=== PATIENT | female | born 2000 | race Caucasian/White ===

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

== ENCOUNTER 2019-03-24 15:48 | Observation (INO) | payer MEDICAID ==
[~2019-03-24 15:48] MED LIST changes: +METR500T PO
[2019-03-24] MEDS ORDERED: IV RINGERS,LACTATED 500ML 500 ML IV PRN (16:00)
[2019-03-24 16:11] LABS: BILIRUBIN,URINE NEGATIVE (NEG); CLARITY,URINE CLEAR; COLOR,URINE YELLOW; NITRITE,URINE NEGATIVE (NEG); PROTEIN,URINE NEGATIVE (NEG-TRACE)
[2019-03-24 16:16] LABS: BACTERIA,URINE 0 /HPF (0-FEW); RBC,URINE 0 /HPF (0-2); WBC,URINE RARE /HPF (0-4)
[2019-03-24 16:17] LABS: SQUAMOUS EPITHELIAL CELL,UR OCC /LPF
== END 2019-03-24 17:38 | disposition home or self-care (01) ==
LOC: 3 SO LND 15:48
PROVIDERS: ADMIT Specialist; ATTEND Specialist
DX: O62.9 Abnormality of forces of labor, unspecified (principal); Z3A.30 30 weeks gestation of pregnancy
CPT/HCPCS: 81001; 87086; G0378; G0379

== ENCOUNTER 2019-05-20 19:45 | Inpatient (IN) | payer MEDICAID ==
[~2019-05-20] VITALS: Ht 156.2 cm; Wt 110.7 kg
[2019-05-20] MEDS ORDERED: LIDOCAINE 1% PF 30 ML VIAL. INJ PRN (20:15)
[2019-05-20] MEDS ORDERED: 0.9 % SODIUM CHLORIDE 10 ML DISP.SYRIN. IV PRN (20:15)
[2019-05-20] MEDS ORDERED: TERBUTALINE 1 MG/ML VIAL. SQ PRN (20:15)
[2019-05-20] MEDS ORDERED: BUTORPHANOL 2 MG/ML VIAL. IV PRN ×2 (20:15)
[2019-05-20] MEDS ORDERED: OXYTOCIN 30 UNIT/500 ML PREMIX 500 ML IV PRN (20:15)
[2019-05-20] MEDS ORDERED: MAG HYDROX/ALUMINUM HYD/SIMETH 30 ML ORAL.SUSP PO PRN (20:15)
[2019-05-20] MEDS ORDERED: NALBUPHINE 10 MG/ML AMPUL. IV PRN (20:15)
[2019-05-20] MEDS ORDERED: ONDANSETRON PF 4 MG/2 ML VIAL. IV PRN (20:15)
[2019-05-20] MEDS ORDERED: ACETAMINOPHEN 325 MG TABLET. PO PRN (20:15)
[2019-05-20] MEDS ORDERED: CITRIC ACID/SODIUM CITRATE 30 ML SOLUTION. PO PRN (20:15)
[2019-05-20] MEDS ORDERED: fentaNYL PF VIAL 100 MCG/2 ML VIAL IV PRN (20:15)
[2019-05-20 20:24] VITALS: BP 119/61
[2019-05-20 20:43] LABS: BILIRUBIN,URINE NEGATIVE (NEG); CLARITY,URINE CLEAR; COLOR,URINE YELLOW; NITRITE,URINE NEGATIVE (NEG); PROTEIN,URINE NEGATIVE (NEG-TRACE)
[2019-05-20 20:47] LABS: BACTERIA,URINE MANY /HPF (0-FEW); RBC,URINE OCC /HPF (0-2); SQUAMOUS EPITHELIAL CELL,UR MANY /LPF; WBC,URINE 20-40 /HPF (0-4)
[2019-05-20 21:30] LABS: BASO # 0.1 x10^3/uL (0.0-0.2); BASO % 1 % (0-3); EOS # 0.1 x10^3/uL (0.0-0.7); EOS % 1 % (0-3); HEMOGLOBIN 12.9 g/dL (12.0-15.5); LYMPH # 2.2 x10^3/uL (1.0-4.8); LYMPH % 16 % (24-48); MEAN CORPUSCULAR HEMOGLOBIN 28 pg (25-35); MEAN CORPUSCULAR HGB CONC 34 g/dL (31-37); MEAN CORPUSCULAR VOLUME 84 fL (79-100); MONO # 0.7 x10^3/uL (0.0-1.1); MONO % 5 % (0-9); NEUT # 10.5 x10^3/uL (1.8-7.7); NEUT % 77 % (31-73); PLATELET COUNT 284 x10^3/uL (140-400); RED BLOOD COUNT 4.53 x10^6/uL (3.50-5.40); RED CELL DISTRIBUTION WIDTH 14.5 % (11.5-14.5); WHITE BLOOD COUNT 13.6 x10^3/uL (4.0-11.0)
[2019-05-20] MEDS ORDERED: DINOPROSTONE 10 MG SUPP.VAG VG ONE (21:30)
[2019-05-20] MEDS: IV RINGERS,LACTATED 1000ML 1,000 ML IV PRN (21:36)
[2019-05-21] MEDS: IV RINGERS,LACTATED 1000ML 1,000 ML IV PRN (00:58)
[2019-05-21] MEDS ORDERED: BUPIVACAINE MPF 0.25% 30 ML VIAL. ONE (02:57)
[2019-05-21] MEDS ORDERED: L&D EPIDURAL SYRINGE 0 ML ONE (02:57)
[2019-05-21] MEDS ORDERED: L&D EPIDURAL 50 ML SYRINGE. ONE (03:00)
--- NOTE | 2019-05-21 03:15 | PDOC1 ---
OB - History Hx of Present Care: Good Care Ultrasounds: Normal mid trimester US Obstetrical Complications: None Medical Complications: None Past Family/Social History * Past Medical, Surgical, Family and Obstetric Histories reviewed from chart. Rubella: Immune RPR/VDRL: Negative GBS Status: Negative HBsAG: Negative OB - Chief Complaint & HPI Date of Admission: Date of Admission: May 20, 2019 at 19:45 Chief Complaint/History : 2 Para: 1 EGA: 39 Reason for admission: induction of labor Indication for induction: maternal discomfort Admission Nurse Assessment Rev: Yes OB - Admission Exam Physical Exam Vitals: VS - Last 72 Hours, by Label Date Time Temp Pulse Resp B/P (MAP) Pulse Ox O2 Delivery O2 Flow Rate FiO2 05/21/19 02:20 22 Room Air 05/20/19 20:24 98.1 112 20 119/61 (80) Room Air 98.1 HEENT: Normal Heart: Regular Rate Lungs: Clear Abdomen: Gravid, Non tender, Soft Extremities: Edema Reflexes: Normal Cervical Dilatation: 1cm Effacement: 50% Station: -3 Membranes: Intact Heart Rate: Normal Accelerations: Accelerations Present Decelerations: No decelerations Contractions on Admission: >10 Minutes Apart Intensity: Mild Text A: 39 wks IUP IOL maternal discomforts of P: Admit IOL cervidil. TARUN MARIN Jr, MD May 21, 2019 03:15
[2019-05-21] MEDS ORDERED: OXYTOCIN 10 UNIT/ML VIAL. ONE (03:56)
[2019-05-21] MEDS ORDERED: OXYTOCIN PREMIX 30 UNIT/500 ML NS BAG. IV ONE (04:00)
--- NOTE | 2019-05-21 04:02 | PDOC ---
VAGINAL DELIVERY DATE DATE: 05/21/19 TIME: 04:01 : 2 Para: 2 EGA: 39 VAGINAL DELIVERY: VTX VACCUM ASSISTED: No PLACENTA: Spontaneous 8/9 SEX: Male WEIGHT Weight [3995 gm ] Nuchal Cord: Yes, Times 1 Amniotic Fluid: Clear PAIN: Epidural EPISIOTOMY: No EXTENSION: Yes (1st degree midline laceration) REPAIRED WITH none; hemostatic EBL 300 ml COMPLICATIONS none CONDITION pt. stable Signs of Intrauterine Infectio: None Shoulder Dystocia: No TARUN MARIN Jr, MD May 21, 2019 04:02
[2019-05-21] MEDS ORDERED: oxyCODONE/APAP 5/325 1 TAB TABLET PO PRN (04:15)
[2019-05-21] MEDS ORDERED: OXYTOCIN 30 UNIT/500 ML PREMIX 500 ML IV PRN ×2 (04:15→09:30)
[2019-05-21] MEDS ORDERED: ACETAMINOPHEN 325 MG TABLET. PO PRN (04:15)
[2019-05-21] MEDS ORDERED: MAGNESIUM HYDROXIDE 2,400 MG/30 ML ORAL.SUSP. PO PRN (04:15)
[2019-05-21] MEDS ORDERED: MMR per PROTOCOL. MC PRN (04:15)
[2019-05-21] MEDS ORDERED: SIMETHICONE 80 MG TAB.CHEW PO PRN (04:15)
[2019-05-21] MEDS ORDERED: diphenhydrAMINE HCL 25 MG CAPSULE PO PRN (04:15)
[2019-05-21] MEDS ORDERED: 0.9 % SODIUM CHLORIDE 10 ML DISP.SYRIN. IV PRN (04:15)
[2019-05-21] MEDS ORDERED: ZOLPIDEM 5 MG TABLET. PO PRN (04:15)
[2019-05-21] MEDS ORDERED: HYDROCORTISONE 1% TOPICAL OINTMENT 30GM TUBE. TP PRN (04:15)
[2019-05-21] MEDS ORDERED: PHENYLEPH/MINERAL OIL/PETROLAT RECTAL OINTMENT TUBE. RC PRN (04:15)
[2019-05-21] MEDS ORDERED: OXYTOCIN 10 UNIT/ML VIAL. IM ONE (04:15)
[2019-05-21] MEDS ORDERED: MAG HYDROX/ALUMINUM HYD/SIMETH 30 ML ORAL.SUSP PO PRN (04:15)
[2019-05-21] MEDS ORDERED: BENZOCAINE 20% TOPICAL AEROSOL SPRAY 57GM CAN. TP PRN (04:15)
[2019-05-21] MEDS ORDERED: NALBUPHINE 10 MG/ML AMPUL. IV PRN (05:00)
[2019-05-21] MEDS ORDERED: NALOXONE 0.4 MG/ML VIAL. IV PRN (05:00)
[2019-05-21] MEDS ORDERED: ePHEDrine PF IN SALINE 50 MG/10 ML SYRINGE. IV PRN (05:00)
[2019-05-21] MEDS ORDERED: ROPIVacaine 0.2% IN 0.9%NACL PF 40 MG/20 ML DISP.SYRIN. EPID PRN (05:00)
[2019-05-21] MEDS ORDERED: BUPIVACAINE MPF 0.25% 30 ML VIAL. EPID PRN (05:00)
[2019-05-21] MEDS ORDERED: PHENYLEPHRINE in 0.9% NACL PF 1 MG/10 ML SYRINGE. IV PRN (05:00)
[2019-05-21] MEDS ORDERED: fentaNYL PF VIAL 100 MCG/2 ML VIAL IV PRN (05:00)
[2019-05-21] MEDS ORDERED: L&D EPIDURAL SYRINGE 50 ML EPID PRN (05:00)
[2019-05-21] MEDS ORDERED: diphenhydrAMINE 50 MG/ML VIAL IV PRN (05:00)
[2019-05-21] MEDS ORDERED: IV RINGERS,LACTATED 500ML 500 ML IV PRN (05:00)
[2019-05-21] MEDS ORDERED: ONDANSETRON PF 4 MG/2 ML VIAL. IV PRN (05:00)
[2019-05-21] MEDS ORDERED: ATROPINE 0.5 MG/5 ML DISP.SYRINGE. IV PRN (05:00)
[2019-05-21] MEDS ORDERED: IV RINGERS,LACTATED 1000ML 1,000 ML IV SCH (05:00)
[2019-05-21] MEDS ORDERED: PROCHLORPERAZINE 10 MG/2 ML VIAL. IV PRN (05:00)
[2019-05-21] MEDS ORDERED: AMPICILLIN SODIUM 2 GM in IV NORMAL SALINE 100ML 100 ML IV ONE (08:00)
[2019-05-21] MEDS: DOCUSATE SODIUM 100 MG CAPSULE. PO PRN ×2 (09:05→16:52)
[2019-05-21] MEDS: IBUPROFEN 400 MG TABLET. PO PRN ×2 (09:06→20:42)
[2019-05-21 09:50] VITALS: BP 103/53
[2019-05-21] MEDS: AMPICILLIN SODIUM 1 GM in IV NORMAL SALINE 50ML 50 ML IV SCH ×3 (12:15→20:15)
[2019-05-21 12:40] VITALS: BP 112/52
[2019-05-21 17:00] VITALS: BP 106/59
--- NOTE | 2019-05-21 17:45 | PDOC ---
Provider Note Provider Note Doing well VSS uterus NTTP FU in AM CBC - BMP 05/20/19 21:00 ALLY MONTANA MD May 21, 2019 17:45
[2019-05-21 20:11] VITALS: BP 114/65
[2019-05-22 04:15] VITALS: BP 108/54
[2019-05-22 07:18] LABS: BASO % 0 % (0-3); EOS # 0.2 x10^3/uL (0.0-0.7); EOS % 2 % (0-3); HEMATOCRIT 34.5 % (36.0-47.0); HEMOGLOBIN 11.5 g/dL (12.0-15.5); LYMPH # 2.7 x10^3/uL (1.0-4.8); LYMPH % 24 % (24-48); MEAN CORPUSCULAR HEMOGLOBIN 29 pg (25-35); MEAN CORPUSCULAR HGB CONC 33 g/dL (31-37); MEAN CORPUSCULAR VOLUME 86 fL (79-100); MONO # 0.7 x10^3/uL (0.0-1.1); MONO % 6 % (0-9); NEUT # 7.7 x10^3/uL (1.8-7.7); NEUT % 68 % (31-73); PLATELET COUNT 212 x10^3/uL (140-400); RED BLOOD COUNT 4.02 x10^6/uL (3.50-5.40); RED CELL DISTRIBUTION WIDTH 14.5 % (11.5-14.5); WHITE BLOOD COUNT 11.3 x10^3/uL (4.0-11.0)
[2019-05-22] MEDS ORDERED: DIPHTH,PERTUSS(ACELL),TET TOX 0.5 ML DISP.SYRIN. VAX IM ONE (07:30)
[2019-05-22] MEDS ORDERED: FERROUS SULFATE 325 MG TABLET. PO SCH (08:00)
[2019-05-22] MEDS: DOCUSATE SODIUM 100 MG CAPSULE. PO PRN (09:10)
[2019-05-22] MEDS: IBUPROFEN 400 MG TABLET. PO PRN (09:10)
[2019-05-22 09:13] VITALS: BP 111/62
--- NOTE | 2019-05-22 09:54 | PDOC3 ---
OB DISCHARGE SUMMARY DATE OF ADMISSION: 04/21/19 DATE OF DISCHARGE: 04/22/19 REASON FOR ADMISSION: Onset of labor PROCEDURES: None INTRAPARTUM PROCEDURES: Spontanous Vag Deliv PROCEDURES: None OPERATIONS: None DISCHARGE DIAGNOSIS: Term Delivered DISCHARGE INFORMATION: Activity, Diet HOSPITAL COURSE Unremarkable CONDITION AT DISCHARGE Stable ALLY MONTANA MD May 22, 2019 09:53
[2019-05-22] MEDS ORDERED: NAPR-514 PO (09:57)
[2019-05-22] MEDS ORDERED: HYDR-3164 PO (09:57)
[2019-05-22 10:35] VITALS: BP 110/71
--- NOTE | 2019-05-22 10:48 | NUR ---
Discharge instructions given and Rx also given. TDAP was given prior to DC. Patient ambulated out of the unit with her belongings and her family at her side. Pt denied any questions at time of DC.
== END 2019-05-22 10:48 | disposition home or self-care (01) | DRG 806 ==
LOC: 3 SO LND 19:45 → 3 NORTH 05-21 07:47
PROVIDERS: ADMIT Specialist; ATTEND Specialist
PROC: 10E0XZZ Delivery of Products of Conception, External Approach (ICD-10-PCS; principal; 2019-05-21)
PROC: 0HQ9XZZ Repair Perineum Skin, External Approach (ICD-10-PCS; 2019-05-21)
PROC: 3E0R3BZ Introduction of Anesthetic Agent into Spinal Canal, Percutaneous Approach (ICD-10-PCS; 2019-05-21)
PROC: 00HU33Z Insertion of Infusion Device into Spinal Canal, Percutaneous Approach (ICD-10-PCS; 2019-05-21)
DX: O69.81X0 Labor and delivery complicated by cord around neck, without compression, not applicable or unspecified (principal); R71.0 Precipitous drop in hematocrit; Z37.0 Single live birth; O70.0 First degree perineal laceration during delivery; Z3A.39 39 weeks gestation of pregnancy; O75.89 Other specified complications of labor and delivery
CPT/HCPCS: 36415; 81001; 85025; 86592; 86762; 86850; 86900; 86901; 87086; 90471; 90715; J0290; J2590; J7120; G0378

== ENCOUNTER 2020-05-02 16:11 | Emergency (ER) | payer MEDICAID ==
[~2020-05-02] VITALS: Ht 160 cm; Wt 100.0 kg
[~2020-05-02 16:11] MED LIST changes: +HYDR-3164 PO; +NAPR-514 PO
[2020-05-02 16:51] VITALS: BP 143/76
[2020-05-02] MEDS ORDERED: FLUT9.9S NS (16:51)
[2020-05-02] MEDS ORDERED: BENZ100C PO (16:51)
--- NOTE | 2020-05-02 16:52 | PHYS DOC ---
Past Medical History Past Medical History: Asthma, GERD Additional Past Medical Histor: Allergies Past Surgical History: No Surgical History Smoking Status: Current Every Day Smoker Alcohol Use: None Drug Use: None General Adult EDM: Chief Complaint: COUGH HPI: HPI: The history was obtained from the patient. Patient is a 20-year-old female with PMH asthma, tobacco abuse who presents with a chief complaint of cough, runny nose. Patient states she has had the symptoms over the past 24 hours. She notes her younger daughter at home is had similar symptoms over the past 3 days but is improving. Patient denies any fevers. She denies any chest pain or shortness of breath. She does note some nasal congestion with mild sore throat. She notes a nonproductive cough. States she has not tried any medication at home. Has not followed up with her family physician. Denies any known exposure coronavirus. Denies any recent antibiotics. Denies syncope. States he has been eating and drinking well otherwise. No other complaints. Review of Systems: Review of Systems: Constitutional: Denies fever or chills. [] Eyes: Denies change in visual acuity. [] HENT: Positive for congestion and sore throat Respiratory: Positive for cough Cardiovascular: Denies chest pain or edema. [] GI: Denies abdominal pain, nausea, vomiting, bloody stools or diarrhea. [] : Denies dysuria. [] Musculoskeletal: Denies back pain or joint pain. [] Integument: Denies rash. [] Neurologic: Denies headache, focal weakness or sensory changes. [] Endocrine: Denies polyuria or polydipsia. [] Lymphatic: Denies swollen glands. [] Psychiatric: Denies depression or anxiety. [] Heart Score: Risk Factors: Risk Factors: DM, Current or recent (<one month) smoker, HTN, HLP, family history of CAD, obesity. Risk Scores: Score 0 - 3: 2.5% MACE over next 6 weeks - Discharge Home Score 4 - 6: 20.3% MACE over next 6 weeks - Admit for Clinical Observation Score 7 - 10: 72.7% MACE over next 6 weeks - Early Invasive Strategies Allergies: Allergies: Allergies Coded Allergies Type Severity Reaction Last Updated Verified No Known Drug Allergies 02/27/16 No Physical Exam: PE: Constitutional: Well developed, well nourished, no acute distress, non-toxic appearance. [] HENT: Normocephalic, atraumatic, bilateral external ears normal, oropharynx moist, no oral exudates, nose normal. [] Eyes: PERRLA, EOMI, conjunctiva normal, no discharge. [] Neck: Normal range of motion, no tenderness, supple, no stridor. [] Cardiovascular:Heart rate regular rhythm, no murmur [] Lungs & Thorax: Bilateral breath sounds clear to auscultation [] Abdomen: soft, no tenderness, no masses, no pulsatile masses. [] Skin: Warm, dry, no erythema, no rash. [] Back: No tenderness, no CVA tenderness. [] Extremities: No tenderness, no cyanosis, no clubbing, ROM intact, no edema. [] Neurologic: Alert and oriented X 3, normal motor function, normal sensory function, no focal deficits noted. [] Psychologic: Affect normal, judgement normal, mood normal. [] EKG: EKG: [] Radiology/Procedures: Radiology/Procedures: [] Course & Med Decision Making: Course & Med Decision Making Pertinent Labs and Imaging studies reviewed. (See chart for details) [] Patient is an overall well-appearing 20-year-old female who presents with chief complaint of cough, congestion, and sore throat. She notes her daughters been sick at home with similar symptoms. Initial vital signs unremarkable. Lungs are clear to auscultation bilaterally. No signs of asthma exacerbation. I did discuss the possibility of chest x-ray however the patient would prefer to decline at this time given she states that she has no shortness of breath. Overall I do feel this is reasonable to have low suspicion for bacterial pneumonia. Not tachypneic, clear lung sounds, afebrile. Patient be tested for coronavirus and will be notified of results in the next several days. She was instructed to follow-up with her primary care physician in the next 2 to 3 days. Supportive care measures were encouraged. Return precautions discussed and understood. Stable for discharge home. COVID-19 CRITERIA: The patient was evaluated during the global COVID-19 pandemic, and that diagnosis was suspected/considered upon their initial presentation. Their evaluation, treatment and testing was consistent with current guidelines for patients who present with complaints or symptoms that may be related to COVID-19. Jarvis Disclaimer: Jarvis Disclaimer: This electronic medical record was generated, in whole or in part, using a voice recognition dictation system. Departure Departure Impression: Primary Impression: Cough Additional Impressions: Congested nose Sore throat Disposition: 01 HOME, SELF-CARE Condition: STABLE Referrals: NO PCP (PCP) Additional Instructions: You have been tested for or diagnosed with COVID-19. It is an infection caused by a new type of coronavirus. COVID-19 will cause cold-like or mild flu symptoms in most. It can cause more severe symptoms like problems breathing in some. There is no treatment for COVID-19. The body will clear the infection over time. Self-care will help to ease discomfort. Steps to Take: Self-Care Rest as needed. Healthy habits may help you feel better. Steps include: Choose healthy foods including fruits and vegetables. Drink water throughout the day. Get plenty of sleep each night. If you smoke, try to quit. It may ease breathing. Avoid alcohol. Keep Others Healthy The virus can spread to others. Droplets are released every time you sneeze or cough. The droplets can get into the mouth, nose, or eyes of people near you and lead to infection. To lower the chances of spreading COVID-19 to others: Stay at home until your doctor has said it is safe to leave. If you tested positive this will mean staying isolated until both of the following are true: At least 7 days have passed since the start of illness. You are free of fever for at least 72 hours without the use of medicine. During this time: - Avoid public areas, events, or transportation. Do not return to work or school until your doctor has said it is safe to do so. - Call ahead if you need to go to a medical center. Let them know you may have COVID-19. It will help them guide you where to go. They may also ask you to wear a facemask when you come to the office. - If you call for emergency medical services, let them know you may have COVID- 19. While at home: - Try to avoid close contact with others. Stay about 6 feet away. - If possible, spend most of your time in a separate room from others. - Use a face mask if you will be in close contact with others such as sharing a room or vehicle. - Have someone wipe down common surfaces in the home. Use household supervisor insecticide every day on areas like doorknobs, counters, or sinks. - Cough or sneeze into a tissue. Throw the tissue away right after use. If a tissue is not available, cough or sneeze into your elbow. - Wash your hands often. Wash them after sneezing or coughing. Use soap and water and wash for at least 20 seconds. Alcohol based hand latrine cleaner can be used if soap and water is not available. - Do not prepare food for others. Avoid sharing personal items like forks, spoons, or toothbrushes. - Avoid close contact with pets while you are sick. There is no evidence of the virus passing to pets. This is a safety step until more is known about this virus. Isolation can be frustrating. Social interaction can help. Keep in touch with friends and family through phone and tech options. You can still interact with others in your home, just keep a safe distance of about 6 feet. Follow-up: Your doctors office will check in with you to see if there are any changes in your health. You may be asked to keep track of symptoms to share with them. They will also let you know when you are clear to be in public again. Problems to Look Out For: Contact your doctor if your recovery is not going as you expect. Get emergency care if you have problems such as: - Trouble breathing - Nonstop chest pain or pressure - Changes in awareness, confusion, or problems waking - Lips or face have bluish color - Worsening of symptoms If you think you have an emergency, call for emergency medical services right away. As taken from [employer] [facility] Fluticasone Propionate (Flonase Allergy Relief) 9.9 Ml Kenefic.susp 2 SPRAYS NS DAILY, #1 BOTTLE Prov: PETE PRYOR DO 05/02/20 Benzonatate (TESSALON PERLE) 100 Mg Capsule 100 MG PO TID PRN for COUGH for 4 Days, #12 CAP Prov: PETE PRYOR DO 05/02/20 Justicifation of Admission Dx: Justifications for Admission: Justification of Admission Dx: N/A PETE PRYOR DO May 02, 2020 16:52
== END 2020-05-02 17:08 | disposition home or self-care (01) ==
LOC: ER 16:11
DX: R05 Cough (principal); R09.81 Nasal congestion; J02.9 Acute pharyngitis, unspecified; J45.909 Unspecified asthma, uncomplicated; K21.9 Gastro-esophageal reflux disease without esophagitis; F17.200 Nicotine dependence, unspecified, uncomplicated
CPT/HCPCS: 99283